=== PATIENT | female | born 1990 | race Caucasian/White ===

== ENCOUNTER 2020-07-10 08:46 | Emergency (ER) | payer OTHER ==
[~2020-07-10] VITALS: Ht 172.7 cm; Wt 79.4 kg
[2020-07-10] MEDS ORDERED: IBUPROFEN 800800 M1 PO (09:47)
[2020-07-10] MEDS ORDERED: NORCO 5-325 TA1 EAC2 PO (09:47)
[2020-07-10] MEDS ORDERED: FLEXERIL PO (09:47)
[2020-07-10 10:23] VITALS: BP 133/79
== END 2020-07-10 10:24 | disposition home or self-care (01) ==
LOC: M.ERS 08:46
DX: S46.811A Strain of other muscles, fascia and tendons at shoulder and upper arm level, right arm, initial encounter (principal); X58.XXXA Exposure to other specified factors, initial encounter; Y93.89 Activity, other specified; Y92.89 Other specified places as the place of occurrence of the external cause; Y99.8 Other external cause status